=== PATIENT | male | born 1980 | race Caucasian/White ===

== ENCOUNTER 2020-05-30 11:24 | Emergency (ER) | payer BC ==
[~2020-05-30] VITALS: Ht 188 cm; Wt 115.2 kg
[2020-05-30 11:28] VITALS: BP 127/92
--- NOTE | 2020-05-30 11:28 | NUR ---
Patient ambulated to bed 6. RN evaluating patient at bedside.
[2020-05-30] MEDS ORDERED: CLINDAMYCIN 300 MG in DEXTROSE 5% 50 ML IV ONE (11:55)
[2020-05-30] MEDS ORDERED: NACL 0.9% 1,000 ML IV ONE (11:55)
[2020-05-30] MEDS ORDERED: CLINDAMYCIN 600 MG/4 ML VIAL ONE (12:10)
--- NOTE | 2020-05-30 12:21 | NUR ---
40yo male bib self c/o spider bite on left buttocks 6 days ago. pain 10/10, sharp. Pt noticed irritation and swelling on days to follow. Went to hospital where they performed incision and drainage and prescribed him with antibiotics. Pt on day 3 Cephalexin. In ER, vss. with erythematous bite on right buttocks. pt ambulatory. pt laying in bed comfortably. ermd made aware of pt status. pmh: heart dse nka
[2020-05-30 12:58] LABS: BASOPHILS % (AUTO) 0.3 % (0.0-2.0); EOSINOPHILS # (AUTO) 0.1 K/uL (0-0.4); EOSINOPHILS % (AUTO) 1.2 % (0.0-4.0); HEMATOCRIT 42.2 % (36-52); HEMOGLOBIN 14.4 g/dL (12.0-18.0); LYMPHOCYTES # (AUTO) 1.3 K/uL (2.0-11.5); MEAN CORPUSCULAR HEMOGLOBIN 29 pg (27-31); MEAN CORPUSCULAR HGB CONC 34 g/dL (33-37); MEAN CORPUSCULAR VOLUME 85.3 fL (80-94); MONOCYTES % (AUTO) 9.3 % (1.7-9.3); NEUTROPHILS # (AUTO) 8.2 K/uL (1.8-7.7); NEUTROPHILS % (AUTO) 77.2 % (42.2-75.2); PLATELET COUNT (AUTO) 156 K/uL (140-450); RED BLOOD CELL COUNT(AUTO) 4.95 MIL/uL (4.20-6.10); RED CELL DISTRIBUTION WIDTH 12.5 % (11.6-13.7); WHITE BLOOD COUNT (AUTO) 10.6 K/uL (4.8-10.8)
[2020-05-30 13:10] LABS: ALBUMIN 3.2 g/dL (3.4-5.0); ANION GAP 12.7 (8-16); CREATININE 1.1 mg/dL (0.6-1.3); POTASSIUM 3.7 mmol/L (3.5-5.1); TOTAL BILIRUBIN 0.6 mg/dL (0.0-1.0)
[2020-05-30 13:29] LABS: PROTHROMBIN TIME 10.1 secs (10.8-13.4)
[2020-05-30 14:22] VITALS: BP 127/92
--- NOTE | 2020-05-30 14:22 | NUR ---
Patient discharged with v/s stable. Written and verbal after care instructions given and explained. Patient alert, oriented and verbalized understanding of instructions. Ambulatory with steady gait. All questions addressed prior to discharge. ID band removed. Patient advised to follow up with PMD. Rx of CLINDAMYCIN, TRAMADOL given. Patient educated on indication of medication including possible reaction and side effects. Opportunity to ask questions provided and answered.
--- NOTE | 2020-06-01 04:35 | NUR ---
late entry---- s/w primary nurse, as follows; [place] End time: 1430 NS end time : 1255
== END 2020-05-30 14:22 | disposition home or self-care (01) ==
LOC: MED 11:24
DX: L03.317 Cellulitis of buttock (principal)
CPT/HCPCS: 36415; 72193; 80053; 83605; 85025; 85610; 85730; 87040; 90471; 90715; 96365; 99285; J3490; J7030; Q9967; 96361